=== PATIENT | female | born 1980 | race Caucasian/White ===

== ENCOUNTER 2022-01-16 11:22 | Inpatient (IN) | payer OTHER ==
[~2022-01-16] VITALS: Ht 154.9 cm; Wt 82.1 kg
[2022-01-16] MEDS ORDERED: PRENATAL CAPLE1 EAC1 PO (14:00)
[2022-01-17] MEDS ORDERED: AMLODIPINE BESYL5 MG (08:44)
[2022-01-17] MEDS ORDERED: FAMOTIDINE20 MG (08:44)
== END 2022-01-19 11:46 | disposition home or self-care (01) | DRG 833 ==
LOC: NST 11:22 → LDR 12:40 → OB/GYN 01-17 10:36
PROVIDERS: ADMIT Obstetrics & Gynecology; ATTEND Obstetrics & Gynecology
PROC: 4A1HXCZ Monitoring of Products of Conception, Cardiac Rate, External Approach (ICD-10-PCS; principal; 2022-01-16)
PROC: BY4FZZZ Ultrasonography of Third Trimester, Single Fetus (ICD-10-PCS; 2022-01-16)
PROC: BU4CZZZ Ultrasonography of Uterus and Ovaries (ICD-10-PCS; 2022-01-16)
DX: O47.03 False labor before 37 completed weeks of gestation, third trimester (principal); O36.8130 Decreased fetal movements, third trimester, not applicable or unspecified; O26.843 Uterine size-date discrepancy, third trimester; Z3A.32 32 weeks gestation of pregnancy; Z20.822 Contact with and (suspected) exposure to COVID-19

== ENCOUNTER 2022-01-20 04:59 | Inpatient (IN) | payer OTHER ==
[~2022-01-20] VITALS: Ht 154.9 cm; Wt 2.3 kg
[~2022-01-20 04:59] MED LIST: AMLODIPINE BESYL5 MG; FAMOTIDINE20 MG; PRENATAL CAPLE1 EAC1 PO
[2022-01-22] MEDS ORDERED: NIFEDIPINE ER30 M1 (08:11)
[2022-01-22] MEDS ORDERED: MONTELUKAST SOD10 MG (08:11)
== END 2022-01-22 14:05 | disposition home or self-care (01) | DRG 807 ==
LOC: LDR 04:59 → OB/GYN 04:59
PROVIDERS: ADMIT Obstetrics & Gynecology; ATTEND Obstetrics & Gynecology
PROC: 10E0XZZ Delivery of Products of Conception, External Approach (ICD-10-PCS; principal; 2022-01-20)
PROC: 0KQM0ZZ Repair Perineum Muscle, Open Approach (ICD-10-PCS; 2022-01-20)
PROC: 4A1HXCZ Monitoring of Products of Conception, Cardiac Rate, External Approach (ICD-10-PCS; 2022-01-20)
DX: O70.1 Second degree perineal laceration during delivery (principal); Z37.0 Single live birth; O42.013 Preterm premature rupture of membranes, onset of labor within 24 hours of rupture, third trimester; Z3A.33 33 weeks gestation of pregnancy; Z20.822 Contact with and (suspected) exposure to COVID-19